=== PATIENT | male | born 1980 | race Caucasian/White ===

== ENCOUNTER 2021-09-19 13:07 | Emergency (ER) | payer BC, OTHER ==
--- OUTSIDE RECORDS SUMMARY | 2021-09-19 13:10 | XMS REPORT | Continuity of Care Document ---
:1980 Author Organization [facility] t Address [address] [address] [place] [address] Care Team Providers Name Role Phone PCP, DOES NOT HAVE A Primary Care Physician Unavailable PREZAS Attending Clinician Unavailable Salvador PAC, S Attending Clinician Movva MBBS Attending Clinician Movva MBBS Admitting Clinician Problems Condition Condition Condition Status Onset Resolution Last Treating Co mments Source Name Details Category Date Date Treatment Clinician Date Heat Heat Disease Active Univers exhaustion exhaustion 8-12 it y of 00:00: [address] Allergies, Adverse Reactions, Alerts Allergy Allergy Status Severity Reaction(s) Onset Inactive Treating Comm ents Source Name Type Date Date Clinician NO KNOWN Drug Active [facility] ALLERGIE Class ity of S [facility] Social History Social Habit Start Date Stop Date Quantity Comments Source Sex Assigned At [facility] Smoking Status Start Date Stop Date Source Current every day smoker 2018-11-30 00:00:00 [facility] Medications Ordered Filled Start Stop Current Ordering Indication Dosage Frequency Signature Comments Components Source Medication Medication Date Date Medication? Clinician (SIG) Name Name NaCl 0.9% Yes 1000mL at 150 Univ ers (NS) IV 8-13 mL/hr, IV [place] 1[place]000 [place] 00 CONTINUOUS Medic al , Starting Branch 11/30/18 at 1900, Until Discontinu ed, Routine NaCl 0.9% 2019- No 1000mL at 999 Uni vers (NS) bolus 8-13 08-12 mL/hr, ity of infusion 00:00: 22:57 1,000 mL, Ignacio as 1,000 mL 00 :00 IV Medical Piggyback, Branch ONCE, 1 dose, 11/30/18 at 1900, STAT NaCl 0.9% Yes 1000mL at 150 Univ ers (NS) IV 8-12 mL/hr, IV it[place] of infusion 23:15: [place] 1[place]000 mL 00 CONTINUOUS Medic al , Starting Branch [facility] 11/30/18 at 1815, Until Discontinu ed, Routine traMADol 2018- No 50mg 50 mg, Univer s (ULTRAM) 11-3014 Oral, ity of tablet 50 23:01: 23:00 Q8HPRN[place] mg 59 :59 Starting Medical [facility] 11/30/18 at 1801, Until Fri12/02/18 at 1800, Routine, Pain (scale 4-6) acetaminoph Yes 650mg 650 mg, Un jorge alberto en 11-30 Oral, ity of (TYLENOL) 23:01: Q6HPRN, [place] tablet 650 57 Starting Medic al mg [facility] 11/30/18 at 1801, Until Discontinu ed, Routine, Pain (scale 1-3) NaCl 0.9% 2018- No 1000mL at 999 Uni vers (NS) bolus 11-30 08-12 mL/hr, ity of infusion 22:45: 21:35 1,000 mL, Ignacio as 1,000 mL 00 :00 IV Medical Infusion, Branch ONCE, 1 dose, [facility] 11/30/18 at 1745, STAT NaCl 0.9% 2018- No 1000mL at 999 Uni vers (NS) bolus 8 08-12 mL/hr, ity of infusion 21:15: 20:13 1,000 mL, Ignacio as 1,000 mL 00 :00 IV Medical Infusion, Branch ONCE, 1 dose, [facility] 11/30/18 at 1615, STAT No known No Univers medications [facility] Vital Signs Vital Name Observation Time Observation Value Comments Source Systolic blood 2018-12-01 12:56:00 141 mm[Hg] Univer sity of pressure [facility] Diastolic blood 2018-12-01 12:56:00 87 mm[Hg] Unive rsity of pressure [facility] Heart rate 2018-12-01 12:56:00 84 /min Universi ty [facility] Body temperature 2018-12-01 12:56:00 36.78 Penny [facility] Respiratory rate 2018-12-01 12:56:00 18 /min [facility] Oxygen saturation in 2018-12-01 12:56:00 96 /min [facility] blood by [facility] Pulse oximetry [facility] Body height 2018-11-30 21:42:00 172.7 cm [facility] Body weight 2018-11-30 21:42:00 81.466 kg [facility] BMI 2018-11-30 21:42:00 27.31 kg/m2 [facility] Procedures Procedure Date / Time Performing Clinician Source Performed CREATINE KINASE 2018-12-01 09:02:00 [facility] MAGNESIUM 2018-12-01 09:02:00 [facility] BASIC METABOLIC PANEL 2018-12-01 09:02:00 [facility] [place] (NA, K, CL, CO2, [facility] GLUCOSE, BUN, CREATININE, CA) CREATINE KINASE 2018-11-30 19:44:00 Terri Franco [facility] LIPASE 2018-11-30 19:44:00 [facility] TROPONIN I 2018-11-30 19:44:00 [facility] COMP. METABOLIC PANEL 2018-11-30 19:44:00 Sanya Caruso [facility] ([id number]) [facility] CBC WITH DIFFERENTIAL 2018-11-30 19:44:00 [facility] EKG-12 LEAD 2018-11-30 19:42:31 Caruso, Sanya [facility] NOTICE OF PRIVACY 2018-11-30 19:29:06 Doctor Unassigned, No Univ [facility] PRACTICES Name Medical Branch CONSENT/REFUSAL FOR 2018-11-30 19:28:52 Doctor Unassigned, [facility] Encounters Start End Encounter Admission Attending Care Care Encounter Source Date/Time Date/Time Type Type Clinicians Facility Department ID 2021-09-19 2021-09-19 Outpatient R [facility] [id number] [facility] 12:40:00 12:40:00 [id number] [facility] 2021-09-19 2021-09-19 Outpatient BESSIE MCDONALD BESSIE [id number] 20 Bessie 00:00:00 00:00:00 AGUSTINA iniguez 2018-11-30 2018-12-01 Emergency Terri Franco [facility] [id number] Univers 14:30:26 10:37:00 Rashid Vela [id number] [facility] [id number] [facility] [id number] [address] Results Test Description Test Time Test Comments Results Result Comments Source Basic Metabolic Panel (NA, K, CL, CO2, GLUCOSE, BUN, 2018-11 10:36:00 CREATININE, CA) Test Item Value Reference Range Interpretation Comme nts NA (test code = 6733669319) 140 mmol/L 135-145 K (test code = 3416584751) 4.0 mmol/L 3.5-5 CL (test code = 7171890197) 110 mmol/L 98-108 H CO2 TOTAL (test code = 0048984407) 26 mmol/L 23-31 AGAP (test code = 5761667510) 2-16 BUN (test code = 0628838573) 27 mg/dL 7-23 H GLUCOSE (test code = 9759644634) 93 mg/dL 70-110 CREATININE (test code = 1.16 mg/dL 0.6-1.25 0807356814) CALCIUM (test code = 7857093263) 8.4 mg/dL 8.6-10.6 L eGFR Calculation (Non- mL/min/1.73m2 [place]) (test code = 7564017326) eGFR Calculation ( mL/min/1.73m2 [place]) (test code = 1695256554) GISELA (test code = GISELA) Association of Glomerular Filtration Rate (GFR) and Staging of Kidney Disease*+ + + +| GFR (mL/min/1.73 m2)?| With Kidney Damage?|?Without Kidney Damage+ +-- + +|?>90?|?Stage one?|? Normal?+ +- + +|?60-89?|?Stage two?|? Decreased GFR? + +-------- + ------+|?30-59?|?Stage three?|? Stage three? + +-------- + ------+|?15-29?|?Stage four? |? Stage four?+ +--- + +|?<15 (or dialysis)?|?Stage five? |? Stage five?+ +--- + +*Each stage assumes the associated GFR level has been in effect for at least three months.?Stages 1 to 5, with or without kidney disease, indicate chronic kidney disease.Notes: Determination of stages one and two (with eGFR >59mL/min/1.73 m2) requires estimation of kidney damage for at least three months as defined by structural or functional abnormalities of the kidney, manifested by either:Pathological abnormalities or Markers of kidney damage (including abnormalities in the composition of the blood or urine or abnormalities in imaging tests). Lab Interpretation (test code = Abnormal 28320-4) [facility] [id number] 10:36:00 Test Item Value Reference Range Interpretation Comments MAGNESIUM (test code = 3889312166) 1.9 mg/dL 1.7-2.4 Lab Interpretation (test code = Normal 59890-1) [facility] [id number] 10:35:00 Test Item Value Reference Range Interpretation Comments CK (test code = 4280349737) 394 U/L 33-194 H Lab Interpretation (test code = Abnormal 31214-7) [facility] [id number] 20:46:00 Test Item Value Reference Range Interpretation Comments CK (test code = 8866886229) 458 U/L 33-194 H Lab Interpretation (test code = Abnormal 02287-8) [facility] [id number] 20:28:00 Test Item Value Reference Range Interpretation Comments TROPONIN I (test <0.012 See_Comment [Automated code = 5893525158) message] The system which generated this result transmitted reference range : <=0.034 ng/mL. The reference range was not used to interpr et this result as normal/abnormal . GISELA (test code = Equal or Less than GISELA) 0.034 ng/ml---Normal?Not e: Cardiac troponin begins to rise 3-4 hours after the onset of ischemia. Repeat in 4-6 hours if the sample was drawn within 3-4 hours of the onset of the symptom and found normal. Between 0.035 and 0.120 ng/mL--- Borderline. Questionable myocardial injury or necrosis?Note: Serial measurement may be necessary to confirm or exclude the diagnosis of myocardial injury or necrosis; Clinical correlation (symptoms, EKGs, imaging studies, and others) required; Repeat in 4-6 hours if clinically indicated.? Equal or Higher than 0.121 ng/mL---Abnormal. Myocardial Injury or Necrosis Likely? Biotin has been reported to cause a negative bias, interpret results relative to patient's use of biotin.? ? Lab Interpretation Normal (test code = 12173-1) [facility]. METABOLIC PANEL (23592)2018-11-30 20:20:00 Test Item Value Reference Range Interpretation Comments NA (test code = 137 mmol/L 135-145 3459628563) K (test code = 3.5 mmol/L 3.5-5 5094458567) CL (test code = 99 mmol/L 98-108 5802089770) CO2 TOTAL (test code = 22 mmol/L 23-31 L 2488558218) AGAP (test code = 2-16 7821495633) BUN (test code = 32 mg/dL 7-23 H 5158204923) GLUCOSE (test code = 163 mg/dL 70-110 H 4319664939) CREATININE (test code = 2.51 mg/dL 0.6-1.25 H 5769949909) TOTAL BILI (test code = 0.7 mg/dL 0.1-1.2 6769674011) CALCIUM (test code = 10.2 mg/dL 8.6-10.6 9774408651) T PROTEIN (test code = 9.2 g/dL 6.3-8.2 H 5152537249) ALBUMIN (test code = 4.9 g/dL 3.5-5 1440641284) ALK PHOS (test code = 99 U/L 34-122 3716611872) ALT(SGPT) (test code = 111 U/L 9-51 H 4234660620) AST(SGOT) (test code = 87 U/L 13-40 H 4129793357) eGFR Calculation mL/min/1.73m2 (Non-) (test code = 3351466881) eGFR Calculation mL/min/1.73m2 () (test code = 5488422142) GISELA (test code = GISELA) Association of Glomerular Filtration Rate (GFR) and Staging of Kidney Disease*+ + + +| GFR (mL/min/1.73 m2)?| With Kidney Damage?|?Without Kidney Damage+ --------+ --------+ +|?>90?|?S tage one?|? Normal?+ ---------+ ---------+ +|?60-89? |?Stage two?|? Decreased GFR? + --+ --+ ------+|?30-59?|?Stage three?|? Stage three? + --+ --+ ------+|?15-29?|?Stage four? |? Stage four?+ -------+ -------+ +|?<15 (or dialysis)?|?Stage five? |? Stage five?+ -------+ -------+ +*Each stage assumes the associated GFR level has been in effect for at least three months.?Stages 1 to 5, with or without kidney disease, indicate chronic kidney disease.Notes: Determination of stages one and two (with eGFR >59mL/min/1.73 m2) requires estimation of kidney damage for at least three months as defined by structural or functional abnormalities of the kidney, manifested by either:Pathological abnormalities or Markers of kidney damage (including abnormalities in the composition of the blood or urine or abnormalities in imaging tests). Lab Interpretation Abnormal (test code = 12273-3) [facility], [id number] 20:16:00 Test Item Value Reference Range Interpretation Comments LIPASE (test code = 8472202653) 85 U/L 0-220 Lab Interpretation (test code = Normal 54017-9) [facility] WITH [id number] 20:02:00 Test Item Value Reference Range Interpretation Comments WBC (test code = See_Comment H [Automated 8308-2) message] The sy stem which generated this result transmitted reference range : 4.20 - 10.70 10*3/?L. The reference range was not used to interpret this result as normal/abnormal . RBC (test code = See_Comment [Automated 242-8) message] The sy stem which generated this result transmitted reference range : 4.26 - 5.52 10*6/?L. The reference range was not used to interpret this result as normal/abnormal . HGB (test code = 16.1 g/dL 12.2-16.4 718-7) HCT (test code = 45.4 % 38.4-49.3 4544-3) MCV (test code = 88.2 fL 81.7-95.6 787-2) MCH (test code = 31.3 pg 26.1-32.7 785-6) MCHC (test code = 35.5 g/dL 31.2-35 H 786-4) RDW-SD (test code = 41.9 fL 38.5-51.6 10721-3) RDW-CV (test code = 12.9 % 12.1-15.4 788-0) PLT (test code = See_Comment [Automated 777-3) message] The sy stem which generated this result transmitted reference range : 150 - 328 10*3/ ?L. The reference r martell was not used to interpret this result as normal/abnormal . MPV (test code = 8.6 fL 9.8-13 L 15665-7) NRBC/100 WBC (test See_Comment [Automat ed code = 9959457611) message] The system which generated this result transmitted reference range : 0.0 - 10.0 /100 WBCs. The refer ence range was not u sed to interpret th is result as normal/abnormal . NRBC x10^3 (test code <0.01 See_Comment [Auto mated = 2428423933) message] The s ystem which generated this result transmitted reference range : 10*3/?L. The reference range was not used to interpret this result as normal/abnormal . GRAN MAT (NEUT) % 76.6 % (test code = 770-8) IMM GRAN % (test code 0.60 % = 1213597301) LYMPH % (test code = 14.1 % 736-9) MONO % (test code = 7.8 % 5905-5) EOS % (test code = 0.5 % 713-8) BASO % (test code = 0.4 % 706-2) GRAN MAT x10^3(ANC) 8.47 10*3/uL 1.99-6.95 H (test code = 8504250094) IMM GRAN x10^3 (test 0.07 10*3/uL 0-0.06 H code = 0026888555) LYMPH x10^3 (test code 1.56 10*3/uL 1.09-3.23 = 731-0) MONO x10^3 (test code 0.86 10*3/uL 0.36-1.02 = 742-7) EOS x10^3 (test code = 0.05 10*3/uL 0.06-0.53 L 711-2) BASO x10^3 (test code 0.04 10*3/uL 0.01-0.09 = 704-7) Lab Interpretation Abnormal (test code = 61895-6) [facility]"
[2021-09-19 14:23] LABS: Urine Blood 3+ (Negative); Urine Glucose Negative (Negative); Urine Protein 1+ (Negative)
[2021-09-19] MEDS ORDERED: NA CHLORIDE 0.9% 1,000 ML ONE ×2 (15:03→15:12)
[2021-09-19] MEDS ORDERED: CEFTRIAXONE 1000 MG/VIAL ONE (15:03)
[2021-09-19 15:20] LABS: Hematocrit 44.1 % (39.6-49.0); MPV 6.4 fL (7.6-11.3); RBC Red Blood Cell Count 4.87 M/uL (4.33-5.43)
[2021-09-19 15:21] LABS: Urine Bacteria <20 /HPF (NONE SEEN); Urine RBC >50 /HPF (NONE SEEN)
[2021-09-19 15:29] LABS: Potassium 4.3 mmol/L (3.5-5.1)
--- NOTE | 2021-09-19 15:59 | RAD REPORT ---
EXAM DESCRIPTION: CTAbdomen Pelvis W Contrast - 09/19/2021 3:51 pm CLINICAL HISTORY: Flank pain, kidney stone suspected COMPARISON: No comparisons TECHNIQUE: CT of the abdomen and pelvis was performed. All CT scans are performed using dose optimization technique as appropriate and may include automated exposure control or mA/KV adjustment according to patient size. FINDINGS: Lower chest: No acute abnormality. Mild circumferential thickened distal esophagus which m ay reflect esophagitis. Liver: No acute abnormality or suspicious lesions. Biliary: No biliary ductal dilatation. Stomach: No significant focal abnormality. Duodenum: No significant focal abnormality. Pancreas: No significant abnormality. Spleen: No significant abnormality. Adrenal: No suspicious lesions. Kidney/ureter: 11 mm stone at the left UPJ there is adjacent stranding. . No hydronephrosis. Addition al bilateral renal calculi noted. No ureteral calculi. Retroperitoneum: No retroperitoneal adenopathy. Vascular: No aneurysm. Bowel: No significant focal abnormality. Normal appendix. Peritoneum: No ascites or free air. Small fat containing inguinal hernias. Bladder: Grossly unremarkable. Reproductive: No adnexal masses. Bones: No acute fracture. Limbus vertebral body at L4. Other: n/a IMPRESSION: 11 mm stone at the left UPJ. Despite no hydronephrosis, left-sided periureteric strandin g is present which could reflect superimposed infection or inflammation.
--- NOTE | 2021-09-19 16:30 | ER ---
Nurse's Notes [facility] Name: Mikey Nolan Age: 40 yrs Sex: Male : 1980 Arrival Date: 09/19/2021 Time: 13:10 Bed 16 Private MD: Diagnosis: Acute cystitis with hematuria;Hematuria, unspecified;Gross hematuria;Kidney Stone/ Calculus in urethra-UPJ Presentation: 09/19 13:21 Chief complaint: Patient states: Blood in urine X 1 day. Denies any other urinary ld1 problems. No pain. Coronavirus screen: At this time, the client does not indicate any symptoms associated with coronavirus-19. Ebola Screen: No symptoms or risks identified at this time. Initial Sepsis Screen: Does the patient meet any 2 criteria? No. Patient's initial sepsis screen is negative. Does the patient have a suspected source of infection? No. Patient's initial sepsis screen is negative. Risk Assessment: Do you want to hurt yourself or someone else? Patient reports no desire to harm self or others. Onset of symptoms was September 19, 2021. 13:21 Method Of Arrival: Ambulatory ld1 13:21 Acuity: JANIS 3 ld1 Triage Assessment: 13:21 General: Appears in no apparent distress. comfortable, Behavior is calm, cooperative, ld1 appropriate for age. Pain: Denies pain. EENT: No signs and/or symptoms were reported regarding the EENT system. Neuro: Level of Consciousness is awake, alert, obeys commands, Oriented to person, place, time, situation. Cardiovascular: Capillary refill < 3 seconds Patient's skin is warm and dry. Respiratory: Airway is patent Respiratory effort is even, unlabored, Respiratory pattern is regular, symmetrical. : Reports Blood in urine. Historical: - Allergies: 13:21 No Known Allergies; ld1 - Home Meds: 13:21 None [Active]; ld1 - PMHx: 13:21 Depressive disorder; Insomnia; ld1 - PSHx: 13:21 None; ld1 - Immunization history:: Adult Immunizations up to date, Client reports receiving the 2nd dose of the Covid vaccine. - Social history:: Smoking status: Patient reports the use of cigarette tobacco products, smokes one-half pack cigarettes per day, Patient/guardian denies using alcohol. Screenin:37 Abuse screen: Denies threats or abuse. Denies injuries from another. Nutritional jg9 screening: No deficits noted. Tuberculosis screening: No symptoms or risk factors identified. Fall Risk None identified. Vital Signs: 13:21 BP 137 / 96; Pulse 86; Resp 18; Temp 98.6(TE); Pulse Ox 97% on R/A; Weight 92.99 kg; ld1 Height 5 ft. 8 in. (172.72 cm); Pain 0/10; 14:30 BP 127 / 83; Pulse 69; Resp 20 S; Pulse Ox 98% on R/A; jg9 15:30 BP 131 / 89; Pulse 70; Resp 17 S; Pulse Ox 94% on R/A; jg9 16:30 BP 143 / 98; Pulse 67; Resp 17 S; Pulse Ox 99% on R/A; jg9 13:21 Body Mass Index 31.17 (92.99 kg, 172.72 cm) ld1 ED Course: 13:10 Patient arrived in ED. as 13:21 Pete Silver MD is Attending Physician. kdr 13:21 Triage completed. ld1 13:21 Arm band placed on right wrist. ld1 14:17 Kalina Olguin RN is Primary Nurse. jg9 14:50 Inserted saline lock: 22 gauge in right forearm, using aseptic technique. Blood ss collected. 15:52 CT Abd/Pelvis - IV Contrast Only In Process Unspecified. EDMS 16:37 Patient has correct armband on for positive identification. Bed in low position. Call jg9 light in reach. Side rails up X 1. 16:57 No provider procedures requiring assistance completed. jg9 16:58 IV discontinued. jg9 Administered Medications: 15:04 Drug: NS 0.9% 1000 ml Route: IV; Rate: 1 bolus; Site: right forearm; ss 16:34 Follow up: IV Status: Completed infusion; IV Intake: 1000ml jg9 15:05 Drug: Rocephin - (cefTRIAXone) 1 grams Route: IVPB; Infused Over: 30 mins; Site: right ss forearm; 16:34 Follow up: IV Status: Completed infusion; IV Intake: 50ml jg9 16:34 Not Given (Duplicate Order): NS 0.9% 1000 ml IV at 1 bolus Per protocol; 1000 mL bolus jg9 Medication: 16:37 VIS not applicable for this client. jg9 Intake: 16:34 IV: 50ml; Total: 50ml. jg9 16:34 IV: 1000ml; Total: 1050ml. jg9 Outcome: 16:30 Discharge ordered by . kdr 16:57 Discharged to home ambulatory. jg9 16:57 Condition: stable 16:57 Discharge instructions given to patient, Instructed on discharge instructions, follow up and referral plans. Demonstrated understanding of instructions, follow-up care. 16:58 Patient left the ED. jg9 Signatures: Dispatcher [employer] EDMS Pete Silver MD MD kdr Martinez, Amelia as Smirch, Shelby, RN RN ss Christine Molina RN RN ld1 Kalina Olguin RN RN jg9
--- NOTE | 2021-09-19 16:30 | EDPHYS ---
Physician Documentation [facility] Name: Mikey Nolan Age: 40 yrs Sex: Male : 1980 Arrival Date: 09/19/2021 Time: 13:10 Bed 16 Private MD: ED Physician Pete Silver HPI: 09/19 15:53 This 40 yrs old Male presents to ER via Ambulatory with complaints of Urinary Problem. kdr 15:53 Patient has had intermittent flank pain and hematuria for months. Over the last 24 kdr hours it has become particularly some. He states his urine has been very brown with blood in it. He is also had some left flank pain with it. He denies nausea vomiting or fever. Denies any pain with urination or pain that radiates into his scrotum. Patient is otherwise nontoxic-appearing on presentation.. Onset: The symptoms/episode began/occurred gradually, 3 day(s) ago. Severity of symptoms: At their worst the symptoms were mild in the emergency department the symptoms are unchanged. The patient has experienced similar episodes in the past, multiple times, but today's symptoms are worse. The patient has not recently seen a physician. Historical: - Allergies: 13:21 No Known Allergies; ld1 - Home Meds: 13:21 None [Active]; ld1 - PMHx: 13:21 Depressive disorder; Insomnia; ld1 - PSHx: 13:21 None; ld1 - Immunization history:: Adult Immunizations up to date, Client reports receiving the 2nd dose of the Covid vaccine. - Social history:: Smoking status: Patient reports the use of cigarette tobacco products, smokes one-half pack cigarettes per day, Patient/guardian denies using alcohol. ROS: 15:55 Constitutional: Negative for fever, chills, and weight loss, Eyes: Negative for injury, kdr pain, redness, and discharge, ENT: Negative for injury, pain, and discharge, Neck: Negative for injury, pain, and swelling, Cardiovascular: Negative for chest pain, palpitations, and edema, Respiratory: Negative for shortness of breath, cough, wheezing, and pleuritic chest pain, Abdomen/GI: Negative for abdominal pain, nausea, vomiting, diarrhea, and constipation, MS/Extremity: Negative for injury and deformity, Skin: Negative for injury, rash, and discoloration, Neuro: Negative for headache, weakness, numbness, tingling, and seizure activity. Psych: Negative for depression, anxiety, suicide ideation, homicidal ideation, and hallucinations, Allergy/Immunology: Negative for hives, rash, and allergies, Endocrine: Negative for neck swelling, polydipsia, polyuria, polyphagia, and marked weight changes, Hematologic/Lymphatic: Negative for swollen nodes, abnormal bleeding, and unusual bruising. 15:55 Back: Positive for flank pain, on the left, of the left mid back, right mid back and right low back. Exam: 15:55 Constitutional: This is a well developed, well nourished patient who is awake, alert, kdr and in no acute distress. Head/Face: Normocephalic, atraumatic. Eyes: Pupils equal round and reactive to light, extra-ocular motions intact. Lids and lashes normal. Conjunctiva and sclera are non-icteric and not injected. Cornea within normal limits. Periorbital areas with no swelling, redness, or edema. Neck: Trachea midline, no thyromegaly or masses palpated, and no cervical lymphadenopathy. Supple, full range of motion without nuchal rigidity, or vertebral point tenderness. No Meningismus. Chest/axilla: Normal chest wall appearance and motion. Nontender with no deformity. No lesions are appreciated. Cardiovascular: Regular rate and rhythm with a normal S1 and S2. No gallops, murmurs, or rubs. Normal PMI, no JVD. No pulse deficits. Respiratory: Lungs have equal breath sounds bilaterally, clear to auscultation and percussion. No rales, rhonchi or wheezes noted. No increased work of breathing, no retractions or nasal flaring. Abdomen/GI: Soft, non-tender, with normal bowel sounds. No distension or tympany. No guarding or rebound. No evidence of tenderness throughout. Back: No spinal tenderness. No costovertebral tenderness. Full range of motion. Skin: Warm, dry with normal turgor. Normal color with no rashes, no lesions, and no evidence of cellulitis. MS/ Extremity: Pulses equal, no cyanosis. Neurovascular intact. Full, normal range of motion. Neuro: Awake and alert, GCS 15, oriented to person, place, time, and situation. Cranial nerves II-XII grossly intact. Motor strength 5/5 in all extremities. Sensory grossly intact. Cerebellar exam normal. Normal gait. Psych: Awake, alert, with orientation to person, place and time. Behavior, mood, and affect are within normal limits. Vital Signs: 13:21 BP 137 / 96; Pulse 86; Resp 18; Temp 98.6(TE); Pulse Ox 97% on R/A; Weight 92.99 kg; ld1 Height 5 ft. 8 in. (172.72 cm); Pain 0/10; 14:30 BP 127 / 83; Pulse 69; Resp 20 S; Pulse Ox 98% on R/A; jg9 15:30 BP 131 / 89; Pulse 70; Resp 17 S; Pulse Ox 94% on R/A; jg9 16:30 BP 143 / 98; Pulse 67; Resp 17 S; Pulse Ox 99% on R/A; jg9 13:21 Body Mass Index 31.17 (92.99 kg, 172.72 cm) ld1 MDM: 16:30 Patient medically screened. kdr 18:41 Data reviewed: vital signs, nurses notes, lab test result(s), radiologic studies. kdr Counseling: I had a detailed discussion with the patient and/or guardian regarding: the historical points, exam findings, and any diagnostic results supporting the discharge/admit diagnosis, lab results, radiology results, the need for outpatient follow up. 09/19 13:23 Order name: Urine Culture ld 09/19 13:23 Order name: Urine Microscopic Only; Complete Time: 15:53 ld1 09/19 14:23 Order name: Urine Dipstick-Ancillary; Complete Time: 14:28 EDMT 09/19 14:52 Order name: CBC with Diff; Complete Time: 15:53 [facility] 09/19 14:52 Order name: Chem 7; Complete Time: 15:53 kdr 09/19 14:52 Order name: CT Abd/Pelvis - IV Contrast Only; Complete Time: 16:24 kdr 09/19 13:23 Order name: Urine Dipstick-Ancillary (obtain specimen); Complete Time: 14:23 ld1 Administered Medications: 15:04 Drug: NS 0.9% 1000 ml Route: IV; Rate: 1 bolus; Site: right forearm; ss 16:34 Follow up: IV Status: Completed infusion; IV Intake: 1000ml [facility] 15:05 Drug: Rocephin - (cefTRIAXone) 1 grams Route: IVPB; Infused Over: 30 mins; Site: right ss forearm; 16:34 Follow up: IV Status: Completed infusion; IV Intake: 50ml jg9 16:34 Not Given (Duplicate Order): NS 0.9% 1000 ml IV at 1 bolus Per protocol; 1000 mL bolus jg9 Disposition Summary: 09/19/21 16:30 Discharge Ordered Location: Home kdr Problem: an acute exacerbation kdr Symptoms: have improved kdr Condition: Stable kdr Diagnosis - Acute cystitis with hematuria kdr - Hematuria, unspecified kdr - Gross hematuria kdr - Kidney Stone/ Calculus in urethra - UPJ kdr Followup: kdr - With: Private Physician - When: 2 - 3 days - Reason: If symptoms return, Further diagnostic work-up, Recheck today's complaints, Continuance of care, Re-evaluation by your physician Discharge Instructions: - Discharge Summary Sheet kdr - Hematuria, Adult kdr - Kidney Stones, [id number]-ov-Hvyv kdr - Urinary Tract Infection, Adult, [id number] kdr Forms: - Medication Reconciliation Form kdr - Thank You Letter kdr - Antibiotic Education kdr - Prescription Opioid Use kdr Prescriptions: - Tramadol 50 mg Oral Tablet - take 1 tablet by ORAL route every 8 hours as needed; 12 tablet; Refills: 0, kdr Product Selection Permitted - Bactrim DS 800-160 mg Oral Tablet - take 1 tablet by ORAL route every 12 hours for 10 days; 20 tablet; Refills: 0, kdr Product Selection Permitted Signatures: Dispatcher [employer] Pete Oakes MD MD [facility] Anna Lott RN RN Christine Molina RN RN ld1 Kalina Olguin RN jg9
[2021-09-19 17:19] VITALS: TEMP 98.6
[2021-09-19 17:23] VITALS: BP 143/98; O2SAT 99
== END 2021-09-19 16:58 | disposition home or self-care (01) ==
LOC: ER 13:07
DX: N30.01 Acute cystitis with hematuria (principal); N20.2 Calculus of kidney with calculus of ureter; F32.A Depression, unspecified; F17.210 Nicotine dependence, cigarettes, uncomplicated
CPT/HCPCS: 96365; 87088; 85025; 87086; 80048; 36415; 74177; 99284; Q9967; J7030 ×2; 81003; 81015

== ENCOUNTER 2022-01-08 15:09 | Emergency (ER) | payer OTHER ==
--- OUTSIDE RECORDS SUMMARY | 2022-01-08 15:12 | XMS REPORT | Continuity of Care Document ---
:1980 Author Organization [facility] t Address [address] [place] [address] [address] [place] [address] Care Team Providers Name Role Phone Pcp, Patient Does Not Have A Primary Care Physician [phone] Pamela Rawls MD Attending Clinician AGUSTINA MCDONALD Attending Clinician Unavailable Problems Condition Condition Condition Status Onset Resolution Last Treating Co mments Source Name Details Category Date Date Treatment Clinician Date Heat Heat Disease Active [facility] exhaustion exhaustion 8-12 it y of 00:00: [place] 00 [facility] Allergies, Adverse Reactions, Alerts This patient has no known allergies or adverse reactions. Social History Social Habit Start Date Stop Date Quantity Comments Source History of Smokes tobacco [facility] of tobacco use daily [facility] Exposure to 2021-10-21 2021-10-[address] [facility] SARS-CoV-2 00:00:00 18:04:00 [facility] (event) [place] Tobacco use and 2018-11-30 2018-11-30 Smokeless tobacco Un iversity of exposure 00:00:00 00:00:00 non-user [facility] Sex Assigned At [birth year] Universit y of 00:00:00 00:00:00 [facility] Smoking Status Start Date Stop Date Source Smokes tobacco daily 2018-11-30 00:00:00 [facility] ity of [facility] Medications Ordered Filled Start Stop Current Ordering Indication Dosage Frequency Signature Comments Components Source Medication Medication Date Date Medication? Clinician (SIG) Name Name nirmatrelvi Yes [id number] 3{tbl} Take 3 Univers r-ritonavir 7-18 tablets by it y of (PAXLOVID, 00:00: mouth in [place] as EUA,) 150 00 the Medical mg x 2- 100 morning Branc h mg tablet and 3 tablets in the evening. bromphenira Yes [id number] 5mL Take 5 mL Univers mine-pseudo 7-16 by mouth 4 it y of ephedrine-D [place]:00[place] (BROMFED 00 times Medical DM) 2-30-10 daily as Bran ch mg/5 mL needed for syrup Congestion /Allergies . nirmatrelvi 2021- No [id number] 3{tbl} Take 3 Univers r-ritonavir 7-16 07-18 tablets by i ty of (PAXLOVID, [place]:00[place] EU[place] 150 00 :00 the Medical mg x 2- 100 morning Branc h mg tablet and 3 tablets in the evening. acetaminoph 2021- No [id number] 650mg Univers en 11-01 ity of (TYLENOL) 00:30: 23:27 [place] tablet 650 00 :00 Medical Branch acetaminoph 2021- No [id number] 650mg 650 mg, Univers en 11-01 Oral, ity of (TYLENOL) 00:30: 23:27 ONCE, 1 [place] tablet 650 00 :00 dose, On Medic al mg Wed Branch 10/31/21 at 1930, Routine benzonatate Yes [id number] 200mg Take 2 Univers 100 mg -13 capsules ity of capsule 00:00: by mouth [place] 00 every 8 Medical (eight) Branch hours as needed for Cough. Vital Signs Vital Name Observation Time Observation Value Comments Source Systolic blood 2021-10-31 23:05:00 134 mm[Hg] Univer sity of pressure [facility] Diastolic blood 2021-10-31 23:05:00 82 mm[Hg[facility] 2021-10-31 23:05:00 95 [facility] Body temperature 2021-10-31 23:05:00 38.56 [facility] ersity [facility] Respiratory rate 2021-10-31 23:05:00 18 /min [facility] Body height 2021-10-31 23:05:00 172.7 cm [facility] Body weight 2021-10-31 23:05:00 77.111 kg [facility] BMI 2021-10-31 23:05:00 25.85 kg/m2 [facility] Oxygen saturation in 2021-10-31 23:05:00 96 /min [facility] Arterial blood by [facility] Pulse oximetry Branch Procedures Procedure Date / Time Performing Clinician Source Performed POCT SARS-COV-2 ANTIGEN 2021-10-31 23:40:00 Pamela Rawls [facility] (BINAX NOW) [facility] COVID-19 (MOLECULAR 2021-10-31 23:06:00 Pamela Rawls [facility] TESTING [facility] NUCLEIC ACID AMPLIFICATION) LAB ONLY COVID 2021-10-31 23:06:00 Pamela Rawls [facility] Encounters Start End Encounter Admission Attending Care Care Encounter Source Date/Time Date/Time Type Type Clinicians Facility Department ID 2021-10-31 2021-10-31 Urgent [facility] [id number] Univers 18:00:00 18:30:43 Care PamelaPNP [employer] [id number] it y of [place] [id number] [place] as JERRY?BLEA [id number] [address] MEDICAL OFFICE BUILDING 2021-09-19 2021-09-19 Outpatient BESSIE MCDONALD [id number] 20 Bessie 00:00:00 00:00:00 AGUSTINA iniguez Results Test Description Test Time Test Comments Results Result Comments Source POCT SARS-COV-2 ANTIGEN (BINAX NOW) 2021-10-31 23:40:00 Test Item Value Reference Range Interpretation Comme nts POCT SARS-COV-2 ANTIGEN (test code = 5076) Not Detected Not Detecte d On board controls acceptable with C Line (test code = Yes 5924) Lab Interpretation (test code = 84349-4) Normal [facility]
[2022-01-08 15:59] LABS: Absolute Lymphocytes (CBC) 1.4 K/uL (0.7-4.9); Hematocrit 45.6 % (39.6-49.0); Lymphocytes % 11.4 % (15.3-44.8); MCV 92.1 fL (80-100); MPV 6.3 fL (7.6-11.3); RBC Red Blood Cell Count 4.95 M/uL (4.33-5.43)
--- NOTE | 2022-01-08 16:13 | RAD REPORT ---
EXAM DESCRIPTION: CT - Stone Protocol - 01/08/2022 4:02 pm CLINICAL HISTORY: Abdominal pain. Right flank pain COMPARISON: September 2021 TECHNIQUE: Computed axial tomography of the abdomen pelvis was obtained without oral or IV contrast. Lack of IV and oral contrast limits evaluation of solid organs, appendix, bowel, and vessels. Mera l reformatted images were obtained and reviewed. All CT scans are performed using dose optimization technique as appropriate and may include automated exposure control or mA/KV adjustment according to patient size. FINDINGS: Bilateral renal calculi. Feoo-ol-znoflmot right hydronephrosis. Right ureter is dilated wi th adjacent stranding. 4 millimeter calculus mid right ureter. The liver, spleen, pancreas and adrenals appear grossly normal There is no evidence of diverticulitis. The appendix appears normal Small umbilical hernia IMPRESSION: 4 millimeter calculus mid right ureter resulting in mild to moderate right hydronephrosi s
[2022-01-08 16:16] LABS: Albumin 3.5 g/dL (3.4-5.0); Bilirubin Total 0.3 mg/dL (0.2-1.0); Potassium 3.7 mmol/L (3.5-5.1); Protein, Total 7.7 g/dL (6.4-8.2)
[2022-01-08 16:19] LABS: Urine Blood 3+ (Negative); Urine Glucose Negative (Negative); Urine Protein Trace (Negative); Urine Specific Gravity >=1.030 (1.005-1.030); Urine pH 5.5 (5.0-7.0)
[2022-01-08] MEDS ORDERED: KETOROLAC 30 MG/ML INJ ONE (19:48)
[2022-01-08] MEDS ORDERED: TAMSULOSIN 0.4 MG SR CAP ONE (19:52)
[2022-01-08] MEDS ORDERED: Magnesium Sulfate 2gm IVPB 2 G/50 ML BAG IV ONE (19:52)
--- NOTE | 2022-01-08 19:55 | ER ---
Nurse's Notes [facility] Name: Mikey Nolan Age: 41 yrs Sex: Male : 1980 Arrival Date: 01/08/2022 Time: 15:11 Bed 12 Private MD: Diagnosis: Calculus of kidney with calculus of ureter Presentation: 01/08 15:43 Chief complaint: Patient states: having kidney pains on the right side; hx of kidney jh5 stones. Coronavirus screen: Vaccine status: Patient reports receiving the 2nd dose of the covid vaccine. Client denies travel out of the [place] in the last 14 days. Ebola Screen: Patient negative for fever greater than or equal to 101.5 degrees Fahrenheit, and additional compatible Ebola Virus Disease symptoms Patient denies exposure to infectious person. Patient denies travel to an Ebola-affected area in the 21 days before illness onset. Initial Sepsis Screen: Does the patient meet any 2 criteria? No. Patient's initial sepsis screen is negative. Does the patient have a suspected source of infection? No. Patient's initial sepsis screen is negative. Risk Assessment: Do you want to hurt yourself or someone else? Patient reports no desire to harm self or others. Onset of symptoms was November 2021. 15:43 Method Of Arrival: Ambulatory [facility] 15:43 Acuity: JANIS 3 jh5 Triage Assessment: 15:45 General: Appears uncomfortable, slender, well groomed, Behavior is calm, cooperative, jh5 appropriate for age. Pain: Complains of pain in left flank. GI: Reports blood in urine. Historical: - PMHx: 15:45 depressive disorder; insomnia; kidney stones; jh5 - Immunization history:: Adult Immunizations up to date. - Social history:: Smoking status: Patient reports the use of cigarette tobacco products, smokes one pack cigarettes per day. Screenin:50 Abuse screen: Denies threats or abuse. Nutritional screening: No deficits noted. jj7 Tuberculosis screening: No symptoms or risk factors identified. Fall Risk None identified. Assessment: 19:35 : Reports pain in right in suprapubic area. jj7 20:39 Reassessment: ASSUMED CARE OF PT. PT LYING IN BED. WARM BLANKET PROVIDED. BP ELEVATED. jj7 ORDERED MEDS GIVEN. PT TOLERATED WELL. 20:41 GI: jj7 20:41 GI: jj7 Vital Signs: 15:43 BP 157 / 103; Pulse 78; Resp 18; Temp 97.9; Pulse Ox 99% ; Weight 90.72 kg; Height 5 5 ft. 9 in. (175.26 cm); Pain 10/10; 19:35 BP 151 / 101; Pulse 64; Resp 16; Pulse Ox 98% ; jj7 20:35 BP 143 / 90; Pulse 61; Resp 18; Pulse Ox 98% ; jj7 15:43 Body Mass Index 29.53 (90.72 kg, 175.26 cm) 5 ED Course: 15:11 Patient arrived in ED. mr 15:19 Roya Oneill FNP-C is [facility]. kb 15:19 Elizabeth Barraza MD is Attending Physician. kb 15:45 Triage completed. [facility] 15:45 Arm band placed on right wrist. [facility] 15:46 Inserted saline lock: 22 gauge in right wrist, using aseptic technique. [facility] 16:04 CT Stone Protocol In Process Unspecified. EDMS 19:50 Patient has correct armband on for positive identification. Bed in low position. Call j7 light in reach. 19:50 No provider procedures requiring assistance completed. jj7 20:41 IV discontinued. jj7 Administered Medications: 20:43 Discontinued: Magnesium Sulfate 1 grams IVPB once over 1 hrs jj7 19:49 Drug: Magnesium Sulfate 1 grams Route: IVPB; Infused Over: 1 hrs; Site: right wrist; jj7 19:49 Drug: Flomax (tamsulosin) 0.4 mg Route: PO; jj7 20:43 Follow up: Response: No adverse reaction jj7 19:49 Drug: Ketorolac 30 mg Route: IVP; Site: right wrist; jj7 20:32 Follow up: Response: No adverse reaction; Pain is decreased jj7 20:43 Follow up: Response: No adverse reaction; Pain is decreased jj7 Medication: 19:35 VIS not applicable for this client. jj7 Outcome: 19:54 Discharge ordered by . kb 20:39 Discharged to home ambulatory. jj7 20:39 Condition: improved 20:39 Discharge instructions given to patient. 20:44 Patient left the ED. jj7 Signatures: Dispatcher [employer] EDMS Roya Oneill EMB[employer]DED SYSTEMS ENGINEER-C E[employer]ED SYSTEMS ENGINEER-Petra Johnston Jessica, RN RN jh5 Melonie Crawford RN RN jj7
--- NOTE | 2022-01-08 19:55 | EDPHYS ---
Physician Documentation [facility] Name: Mikey Nolan Age: 41 yrs Sex: Male : 1980 Arrival Date: 01/08/2022 Time: 15:11 Bed 12 Private MD: ED Physician Elizabeth Barraza HPI: 01/08 23:49 This 41 yrs old Male presents to ER via Ambulatory with complaints of Possible Kidney kb Stone, Urinary Problem. 23:49 The patient complains of pain in the right flank. The pain radiates to the right lower kb quadrant. Onset: The symptoms/episode began/occurred yesterday. Modifying factors: The symptoms are alleviated by nothing. the symptoms are aggravated by nothing. Associated signs and symptoms: Pertinent positives: hematuria. Severity of pain: At its worst the pain was moderate in the emergency department the pain is unchanged. The patient has experienced a previous episode. The patient has been recently seen by a physician:. Pt reports he was diagnosed with an 11mm kidney stone last month. States the pain had gotten better, but returned yesterday. Reports one episode of hematuria today. Pt followed up with Dr Galaviz for stone and developed treatment plan, but did not follow through due to financial reasons. Historical: - PMHx: 15:45 depressive disorder; insomnia; kidney stones; jh5 - Immunization history:: Adult Immunizations up to date. - Social history:: Smoking status: Patient reports the use of cigarette tobacco products, smokes one pack cigarettes per day. ROS: 23:48 Constitutional: Negative for fever, chills, and weight loss. kb 23:48 Back: Positive for flank pain. 23:48 : Positive for hematuria. 23:48 All other systems are negative. Exam: 23:48 Constitutional: This is a well developed, well nourished patient who is awake, alert, kb and in no acute distress. Head/Face: Normocephalic, atraumatic. ENT: Moist Mucous membranes Cardiovascular: Regular rate and rhythm with a normal S1 and S2. No gallops, murmurs, or rubs. No pulse deficits. Respiratory: Respirations even and unlabored. No increased work of breathing. Talking in full sentences Abdomen/GI: Soft, non-tender. No distention Skin: Warm, dry with normal turgor. Normal color. MS/ Extremity: Pulses equal, no cyanosis. Neurovascular intact. Full, normal range of motion. Neuro: Awake and alert, GCS 15, oriented to person, place, time, and situation. Moves all extremities. Normal gait. Psych: Awake, alert, with orientation to person, place and time. Behavior, mood, and affect are within normal limits. 23:48 Back: CVA tenderness, that is mild, that is moderate, is noted on the right. Vital Signs: 15:43 BP 157 / 103; Pulse 78; Resp 18; Temp 97.9; Pulse Ox 99% ; Weight 90.72 kg; Height 5 5 ft. 9 in. (175.26 cm); Pain 10/10; 19:35 BP 151 / 101; Pulse 64; Resp 16; Pulse Ox 98% ; jj7 20:35 BP 143 / 90; Pulse 61; Resp 18; Pulse Ox 98% ; jj7 15:43 Body Mass Index 29.53 (90.72 kg, 175.26 cm) 5 MDM: 15:45 Patient medically screened. kb 23:49 Data reviewed: vital signs, nurses notes. Data interpreted: Pulse oximetry: on room air kb is 98 %. Interpretation: normal. Counseling: I had a detailed discussion with the patient and/or guardian regarding: the historical points, exam findings, and any diagnostic results supporting the discharge/admit diagnosis, lab results, radiology results, the need for outpatient follow up, a urologist, to return to the emergency department if symptoms worsen or persist or if there are any questions or concerns that arise at home. 01/08 15:46 Order name: CBC with Diff; Complete Time: 16:04 kb 01/08 15:46 Order name: CMP; Complete Time: 16:23 kb 01/08 15:46 Order name: Lipase; Complete Time: 16:23 kb 01/08 15:46 Order name: CT Stone Protocol; Complete Time: 16:14 kb 01/08 16:19 Order name: Urine Dipstick-Ancillary; Complete Time: 16:23 EDMS 01/08 15:46 Order name: IV Saline Lock; Complete Time: 15:53 kb 01/08 15:46 Order name: Labs collected and sent; Complete Time: 15:53 kb 01/08 15:46 Order name: Urine Dipstick-Ancillary (obtain specimen); Complete Time: 19:03 kb Administered Medications: 20:43 Discontinued: Magnesium Sulfate 1 grams IVPB once over 1 hrs jj7 19:49 Drug: Magnesium Sulfate 1 grams Route: IVPB; Infused Over: 1 hrs; Site: right wrist; jj7 19:49 Drug: Flomax (tamsulosin) 0.4 mg Route: PO; jj7 20:43 Follow up: Response: No adverse reaction jj7 19:49 Drug: Ketorolac 30 mg Route: IVP; Site: right wrist; jj7 20:32 Follow up: Response: No adverse reaction; Pain is decreased jj7 20:43 Follow up: Response: No adverse reaction; Pain is decreased jj7 Disposition Summary: 01/08/22 19:54 Discharge Ordered Location: Home kb Condition: Stable kb Diagnosis - Calculus of kidney with calculus of ureter kb Followup: kb - With: Emergency Department - When: As needed - Reason: Worsening of condition Followup: kb - With: Private Physician - When: 2 - 3 days - Reason: Recheck today's complaints, Continuance of care, Re-evaluation by your physician Discharge Instructions: - Discharge Summary Sheet kb - Kidney Stones, [id number] kb - Dietary Guidelines to Help Prevent Kidney Stones kb Forms: - Medication Reconciliation Form kb - Thank You Letter kb - Antibiotic Education kb - Prescription Opioid Use kb Prescriptions: - Flomax 0.4 mg Oral capsule - take 1 capsule by ORAL route once daily 1/2 hour following the same meal each kb day; 10 capsule; Refills: 0, Product Selection Permitted - Augmentin 875-125 mg Oral Tablet - take 1 tablet by ORAL route every 12 hours for 10 days; 20 tablet; Refills: 0, Product Selection Permitted - Zofran 4 mg Oral Tablet - take 1 tablet by ORAL route every 6 hours As needed; 20 tablet; Refills: 0, Product Selection Permitted - Diclofenac Sodium 75 mg Oral tablet,delayed release (DR/EC) - take 1 tablet by ORAL route 2 times per day As needed; 30 tablet; Refills: 0, kb Product Selection Permitted Signatures: Dispatcher [employer] Roya Lee FNP-C FNP-Ckb Rees, Jessica, RN RN jh5 Melonie Crawford RN RN jj7 Corrections: (The following items were deleted from the chart) 23:49 23:49 Counseling: I had a detailed discussion with the patient and/or guardian reed regarding: the historical points, exam findings, and any diagnostic results supporting the discharge/admit diagnosis, lab results, radiology results, the need for outpatient follow up, a family practitioner, to return to the emergency department if symptoms worsen or persist or if there are any questions or concerns that arise at home, reed :49 23:48 Back: CVA tenderness, that is mild, that is moderate, is noted on the left, reed mcbride
[2022-01-10 03:44] VITALS: TEMP 97.9
[2022-01-10 03:49] VITALS: O2SAT 98
[2022-01-10 03:54] VITALS: BP 143/90
== END 2022-01-08 20:44 | disposition home or self-care (01) ==
LOC: ER 15:09
DX: N20.2 Calculus of kidney with calculus of ureter (principal); F17.210 Nicotine dependence, cigarettes, uncomplicated; Z87.442 Personal history of urinary calculi
CPT/HCPCS: 85025; 36415; 81003; 83690; 80053; 76377; 74176; J3475; 96374; 96375; 99283